=== PATIENT | male | born 1945 | race Caucasian/White ===

== ENCOUNTER 2023-02-03 16:50 | Emergency (ER) | payer MEDICARE, BC ==
[2023-02-03] MEDS ORDERED: Acetaminophen 325 MG Tab PO ONE (17:15)
[2023-02-03] MEDS ORDERED: Diphtheria,Pertussis(Acell),Tetanus Vaccine 0.5 ML Syringe IM ONE (19:00)
== END 2023-02-03 19:25 | disposition home or self-care (01) ==
LOC: KA.ED 16:50
DX: S06.0X0A Concussion without loss of consciousness, initial encounter (principal); Z23 Encounter for immunization; Z79.01 Long term (current) use of anticoagulants; Z79.899 Other long term (current) drug therapy; W10.9XXA Fall (on) (from) unspecified stairs and steps, initial encounter
CPT/HCPCS: 70450; 90715; 99284; A9270; 90471; 99283-25